=== PATIENT | male | born 1995 ===

== ENCOUNTER 2016-08-07 13:25 | Emergency (ER) | payer BC ==
[2016-08-07 14:15] VITALS: BP 133/85
--- NOTE | 2016-08-07 14:41 | UC ---
Throat Pain/Nasal Darin HPI - HPI Summary HPI Summary: Patient has had sore throat and cough for the past three days, has seasonal allergies and is taking his daily allergy medications, no fever. - History of Current Complaint Chief Complaint: UCRespiratory Stated Complaint: SORE THROAT Time Seen by Provider: 08/07/16 14:13 Hx Obtained From: Patient Onset/Duration: Sudden Onset, Lasting Days Severity: Moderate Associated Signs & Symptoms: Positive: Negative, Dysphagia, Wheezing, Sinus Discomfort - Allergies/Home Medications Allergies/Adverse Reactions: Allergies Allergy/AdvReac Type Severity Reaction Status Date / Time seasonal Allergy Congestion Uncoded 08/07/16 14:15 Home Medications: Home Medications Fexofenadine (NF) [Alissa (NF)] 60 mg PO DAILY PRN 08/07/16 [History Confirmed 08/07/16] PMH/Surg Hx/FS Hx/Imm Hx Previously Healthy: Yes - Surgical History Surgical History: None - Family History Known Family History: Negative: Cardiac Disease, Hypertension - Social History Alcohol Use: Occasionally Substance Use Type: None Smoking Status (MU): Current Some Day Smoker Review of Systems Constitutional: Negative Skin: Negative Eyes: Negative ENT: Sore Throat Respiratory: Cough Cardiovascular: Negative Gastrointestinal: Negative Genitourinary: Negative Motor: Negative Neurovascular: Negative Musculoskeletal: Negative Neurological: Negative Psychological: Negative All Other Systems Reviewed And Are Negative: Yes Physical Exam Triage Information Reviewed: Yes Appearance: Well-Appearing, Well-Nourished, Pain Distress Vital Signs: Initial Vital Signs Temp 98 F 08/07/16 14:08 Pulse 64 08/07/16 14:08 Resp 18 08/07/16 14:08 BP 133/85 08/07/16 14:08 Vital Signs Reviewed: Yes Eye Exam: Normal Eyes: Positive: Conjunctiva Clear ENT: Positive: Normal ENT inspection, Hearing grossly normal, Pharynx normal, TMs normal Dental Exam: Normal Neck exam: Normal Neck: Positive: Supple, Nontender, No Lymphadenopathy Respiratory Exam: Normal Respiratory: Positive: Chest non-tender, No respiratory distress, No accessory muscle use, Wheezing, Inspiration Cardiovascular Exam: Normal Cardiovascular: Positive: RRR, No Murmur, Pulses Normal Abdominal Exam: Normal Abdomen Description: Positive: Nontender, No Organomegaly, Soft Bowel Sounds: Positive: Present Musculoskeletal Exam: Normal Musculoskeletal: Positive: Strength Intact, ROM Intact, No Edema Neurological Exam: Normal Neurological: Positive: Alert, Muscle Tone Normal Psychological Exam: Normal Skin Exam: Normal Throat Pain/Nasal Course/Dx - Course Course Of Treatment: hx obtained, exam performed, meds reviewed, strep is negative, treated for wheezing - Differential Dx/Diagnosis Differential Diagnosis/HQI/PQRI: Laryngitis, Otitis Media, Pharyngitis, Sinusitis, URI Provider Diagnoses: pharyngitis. wheezing Discharge - Discharge Plan Condition: Stable Disposition: HOME Patient Education Materials: Pharyngitis (ED) Additional Instructions: take the medication as prescribed. Continue with your daily allergy medication Increase your fluid intake and get plenty of rest.
== END 2016-08-07 15:10 | disposition home or self-care (01) ==
LOC: UCCORT 13:25
DX: J02.9 Acute pharyngitis, unspecified (principal); R06.2 Wheezing; Z72.0 Tobacco use
CPT/HCPCS: 87651; 99201; G0463